=== PATIENT | female | born 1940 | race Caucasian/White ===

== ENCOUNTER 2023-01-03 10:33 | Emergency (ER) | payer MEDICARE, OTHER, SELFPAY ==
[2023-01-03 10:54] VITALS: BP 155/92; PULSE 73; RESP 18; TEMP 36.4; O2SAT 99; BMI 32.9
--- NOTE | 2023-01-03 11:15 | CRLHL7_ITS ---
For Patients: As a result of the Century Cures Act, medical imaging exams and procedure reports are released immediately into your electronic medical record. You may view this report before your referring provider. If you have questions, please contact your health care provider. Indication: Left-sided abdominal and flank pain Technique: Volumetric multidetector CT images of the abdomen and pelvis were obtained after the administration of intravenous contrast. 91 cc Isovue 370 low osmolar intravenous contrast Comparison: None available. Findings: There is basilar atelectasis and parenchymal scar. The liver is normal in attenuation without intrahepatic biliary ductal dilatation. The portal vein is patent. Gallbladder is surgically absent. There is mild dilatation of the common bile duct. There is demonstration of a small embolization coil at the splenic hilum. There is mild thickening of the gastric antrum with demonstration of a small hiatal hernia. There is mild pancreatic atrophy. The adrenal glands are unremarkable. Cystic changes of the kidneys are appreciated with no evidence of obstructive calculus. Moderate stool seen throughout the colon with distal colonic diverticulosis with moderate focal thickening and pericolonic inflammation of the mid sigmoid colon consistent with diverticulitis. The appendix is unremarkable. There is no significant mesenteric, retroperitoneal, or pelvic sidewall lymph nodes. The aorta is nonaneurysmal. There is no significant atherosclerotic disease appreciated. The solid pelvic viscera are grossly unremarkable. There is no free fluid or free air. There is a small fat containing umbilical hernia. The lumbar vertebral body heights are grossly maintained with [id number] multilevel degenerative disc disease. There is no significant spondylolisthesis or displaced fracture. Impression: Moderate focal thickening and pericolonic inflammation of the mid sigmoid colon consistent with diverticulitis. Moderate stool seen throughout the colon. Prior cholecystectomy with reservoir dilatation of the intrahepatic and common bile ducts. Please note that all CT scans at this facility use dose modulation, iterative reconstruction, and/or weight-based dosing when appropriate to reduce radiation dose to as low as reasonably achievable. Dictated by Giovanni Cespedes MD @ 01/03/2023 12:28:00 PM (Electronically Signed)
[2023-01-03 11:32] LABS: Lactate* 0.8 mmol/L (0.5-1.9)
--- NOTE | 2023-01-03 11:41 | ED.GENADULT ---
HPI - General Adult General Date Seen: 01/03/23 Chief complaint: Abdominal Pain Stated complaint: abdominal / back pain Time Seen by Provider: 01/03/23 11:06 Source: patient Mode of arrival: ambulatory Limitations: no limitations History of Present Illness HPI narrative: Patient is an 82-year-old woman who tells me she has a history of both kidney stones and diverticulitis, she says she has had some left-sided abdominal and flank pain on and off for the past week which was mild and just a nuisance, but woke up at 3:45 a.m. in the morning with which she says was severe pain radiating from the left flank wrapping around the left side of her abdomen to who the umbilicus. She says it also involved her bladder. It seems to be milder now although she says it is still severe. She has not had any nausea, vomiting, black or bloody stools. Has says a couple of episodes of diarrhea over the past week. No urinary symptoms. She does not know whether this feels like previous episodes of kidney stones or diverticulitis. She presented to urgent care where she had a CBC which was normal and a UA which was normal and was sent here for further evaluation. She notes previous cholecystectomy, hysterectomy, multiple orthopedic surgeries. No diverticular surgery. She does not smoke. No other significant medical history. Related Data Home Medications Medication Instructions Recorded Confirmed propranolol 10 mg tablet 10 mg PO DAILY 01/03/23 01/03/23 Previous Rx's Medication Instructions Recorded oxycodone 5 mg tablet 2.5 - 5 mg (0.5 - 1 x 5 mg) PO TID 01/03/23 PRN pain #7 tabs Allergies Allergy/AdvReac Type Severity Reaction Status Date / Time aspirin [From Norgesic] Allergy Verified 01/03/23 09:12 caffeine [From Norgesic] Allergy Verified 01/03/23 09:12 ciprofloxacin [From Cipro] Allergy Verified 01/03/23 09:12 orphenadrine [From Norgesic] Allergy Verified 01/03/23 09:12 unknown Allergy Uncoded 01/03/23 09:16 Review of Systems Status of ROS: Reports: 10 or more systems reviewed and unremarkable except as noted in History and below Exam Narrative: Exam Narrative: Vital signs as noted above. In general, an alert, well-appearing patient. Head: Normocephalic, atraumatic. Eyes: Pupils are equal reactive. Extraocular movements are full. Conjunctivae are normal. ENT: Mucous membranes are moist. Throat is normal. Neck: Supple without lymphadenopathy. Heart: Regular rate and rhythm. No murmur or rub. Lungs: Clear bilaterally. No increased work of breathing, crackles or wheezes. Abdomen: Soft and nondistended, diffuse left-sided tenderness without rebound guarding or rigidity. Extremities: Well perfused. No edema. No calf tenderness. Pulses intact. Neurologic: Patient is alert and oriented to person and place. Speech is fluent. Face is symmetric. Moves all extremities equally. Affect: Normal. Skin: Warm and dry. Well perfused. Const: Vital Signs, click to edit/add: Vital Signs - 24 hr 01/03/23 10:54 Temperature 97.6 F Pulse Rate [Right Pulse Oximeter] 73 Respiratory Rate 18 Blood Pressure [Ri ght Upper Arm] 155/92 H Pulse Oximetry 99 Oxygen Delivery Me thod Room Air Documenting provider has reviewed patient's vital signs: yes Course Course ED Course: Will place an IV, check other labs including metabolic panel, lipase, LFTs, lactate, CRP. Reviewed labs from Urgent Care. CT scan ordered. Diagnostic considerations include colitis, diverticulitis, pyelonephritis, less likely obstruction, aortic pathology, unclear whether she still has ovaries. Vital signs are stable, she appears comfortable. Labs are reassuring. Her CBC from Urgent Care was unremarkable, metabolic panel is normal, lactate is 0.8. LFTs are normal. CRP is minimally elevated at 3.3 and lipase is normal at 78. Her CT scan is read by Radiology as follows:Impression: Moderate focal thickening and pericolonic inflammation of the mid sigmoid colon consistent with diverticulitis. Moderate stool seen throughout the colon. Prior cholecystectomy with reservoir dilatation of the intrahepatic and common bile ducts. Consistent with mild diverticulitis, no evidence of perforation or abscess. I think it is reasonable to treat her at home with oral antibiotics. She declined anything stronger for pain than Tylenol, it initially prescribed some oxycodone but she declined that. Reviewed with her that if she has worsening, develops fevers, severe pain, vomiting etcetera she should come back. Otherwise, primary care follow-up for recheck next week. Vital Signs Vital signs: Initial Vital Signs Temperature 97.6 F 01/03/23 10:54 Temperature Source Temporal Artery Scan 01/03/23 10:54 Pulse Rate 73 01/03/23 10:54 Respiratory Rate 18 01/03/23 10:54 Blood Pressure 155/92 H 01/03/23 10:54 Blood Pressure Mean 113 H 01/03/23 10:54 Blood Pressure Position Sitting 01/03/23 10:54 Pulse Oximetry 99 01/03/23 10:54 Oxygen Delivery Method Room Air 01/03/23 10:54 Vital Signs Temperature 97.6 F 01/03/23 10:54 Pulse Rate 73 01/03/23 10:54 Respiratory Rate 18 01/03/23 10:54 Blood Pressure 155/92 H 01/03/23 10:54 Pulse Oximetry 99 01/03/23 10:54 Oxygen Delivery Method Room Air 01/03/23 10:54 Temperature 97.6 F 01/03/23 10:54 Pulse Rate 73 01/03/23 10:54 Respiratory Rate 18 01/03/23 10:54 Blood Pressure 155/92 H 01/03/23 10:54 Pulse Oximetry 99 01/03/23 10:54 Oxygen Delivery Method Room Air 01/03/23 10:54 Medical Decision Making Lab Data Labs: Lab Results 01/03/23 Range/Units 11:28 Sodium 137 (135-149) mmol/L Potassium 4.0 (3.6-5.1) mmol/L Chloride 105 (96-114) mmol/L Carbon Dioxide 25 (20-32) mmol/L Anion Gap 7 (7-15) mEq/L BUN 18 (7-30) mg/dL Creatinine 0.9 (0.5-1.5) mg/dL Estimated Creat Clear 36.50 Estimated GFR 64 ml/min Glucose 95 (60-115) mg/dL Lactate 0.8 (0.5-1.9) mmol/L Calcium 9.3 (8.4-10.6) mg/dL Total Bilirubin 0.9 (0.1-1.5) mg/dL Direct Bilirubin 0.0 (0.0-0.5) mg/dL AST 26 (12-35) U/L ALT 18 (4-35) U/L Alkaline Phosphatase 91 (40-150) U/L C-Reactive Protein 3.3 H (0.5-1.0) mg/dL Total Protein 7.6 (6.0-8.3) g/dL Albumin 4.2 (3.3-5.0) g/dL Lipase 78 (23-300) U/L Discharge Plan Discharge Clinical Impression: Diverticulitis Patient Disposition: Home, Self-Care Condition: Stable Instructions: Diverticulitis (DC) Additional Instructions: Antibiotic as prescribed. Tylenol 1000 mg 3 times daily. Oxycodone 1/2-1 full tablet if needed for more severe pain. Primary care follow-up next week for recheck. Return at any time for worsening pain, fevers, bloody stools, vomiting or other worsening symptoms. Prescriptions: New oxycodone 5 mg tablet 2.5 - 5 mg PO TID PRN (Reason: pain) Qty: 7 0RF No Action propranolol 10 mg tablet 10 mg PO DAILY Follow Up/Referrals: Anel San DO [Primary Care Provider] - Stand Alone Forms: [email or web address] Info Instructions
[2023-01-03 11:47] LABS: Albumin* 4.2 g/dL (3.3-5.0); Chloride* 105 mmol/L (96-114)
[2023-01-03 11:48] LABS: Sodium* 137 mmol/L (135-149)
[2023-01-03 11:50] LABS: Bilirubin Total* 0.9 mg/dL (0.1-1.5); Carbon Dioxide* 25 mmol/L (20-32); Creatinine* 0.9 mg/dL (0.5-1.5); Estimated Glomerular Filt Rate 64 ml/min
[2023-01-03 11:51] LABS: Alanine Aminotransferase* 18 U/L (4-35); Alkaline Phosphatase* 91 U/L (40-150); Anion Gap 7 mEq/L (7-15); Aspartate Amino Transferase* 26 U/L (12-35); Blood Urea Nitrogen* 18 mg/dL (7-30); Calcium* 9.3 mg/dL (8.4-10.6); Glucose* 95 mg/dL (60-115); Lipase* 78 U/L (23-300); Total Protein* 7.6 g/dL (6.0-8.3)
[2023-01-03 11:53] LABS: C Reactive Protein* 3.3 mg/dL (0.5-1.0)
== END 2023-01-03 13:31 | disposition home or self-care (01) ==
PROVIDERS: Emergency Provider Emergency Medicine; PCP Family Medicine
DX: K57.92 Diverticulitis of intestine, part unspecified, without perforation or abscess without bleeding (principal)
CPT/HCPCS: 36415; 74177; 80048; 80076; 83605; 83690; 86140; 87086; 99284; Q9967

== ENCOUNTER 2024-06-12 16:48 | Emergency (ER) | payer MEDICARE, SELFPAY ==
--- OUTSIDE RECORDS SUMMARY | 2024-06-12 16:50 | XMS_ITS | Clinical Summary ---
Author Organization [employer] [facility] Address [place], [place] [address] Care Team Providers Care Health Care Analyst Name Role Phone Anel San DO Primary Care Provider [phone] Allergies Active Allergy Reactions Criticality Noted Date Comments Caffeine Tachycardia High 09/24/2022 Lactase Diarrhea High 09/24/2022 Fwohoybbrnca-Rez-Ahnlfpar 11/05/2006 Oxycodone Other - Describe In Comment Field High 09/24/2022 Oxycodone-Acetaminophen Other - Describe In Comment Field High 09/24/2022 Sulfa (Sulfonamide Antibiotics) 11/05/2006 Medications ketotifen (Zaditor) 0.025 % (0.035 %) ophthalmic solutionIndication s:Allergic conjunctivitis of both eyes Place 1 Drop into both eyes two times daily. 5 mL 4 Active propranoloL (INDERAL) 10 mg tabletIndications: Migraine with aura and without status migrainosus, not intractable Take 1 Tablet (10 mg) by mouth once daily. 90 Tablet 3 5 Active propranoloL (INDERAL) 10 mg tabletIndications: Migraine with aura and without status migrainosus, not intractable TAKE ONE TABLET BY MOUTH ONE TIME DAILY 60 Tablet 4 05/27/19 25 Discontinu ed(Reorder (E-cancel not sent)) Active Problems Problem Noted Date Diagnosed Date Migraine without status migrainosus, not intract able 09/25/2022 SLE (systemic lupus erythematosus) 09/25/2022 Stage 3a chronic kidney disease 09/25/2022 Paroxysmal SVT (supraventricular tachycardia) Chronic pain of left ankle 09/25/2022 Encounters Date Type Department Care Team Description 06/06/2024 11:00 AM CAR SEAT UPHOLSTERER Ancillary Procedure [facility] [address] [place] [address] 06/06/2024 Travel 05/30/2024 10:35 AM CAR SEAT UPHOLSTERER Office Visit [facility] [address] [place] [address] Anel San Odalis, DO Medicare ANNUAL (subsequent) Visit (84 year old female); Neurologic Problem (Bilateral foot numbness - constant) 05/30/2024 Travel 05/19/2024 Telephone [facility] [address] [place] [address] Anel San Odalis, DO Questions (Lab work wanted) 05/11/2024 Orders Only [facility] Scanner 1 scan: (1-Ord) [facility], 05/11/2024 04/20/2024 Refill [facility] [address] [place] [address] Anel San, DO Refill Request (Propranolol) from Last 3 Months Immunizations Name Administration Dates Next Due COVID-19 vaccine (Moderna 10 0mcg/0.5mL) DAINA VENEGAS 03/27/2021,08/05/2020,07/09/2020 Pneumococcal Poly,23-Valent (Pneumovax) 04/27/19 19 Pneumococcal conj 13-Valent (Prevnar 13) 018 Family History Medical History Relation Name Comments Alcoholism Brother Throat cancer Brother Smoking histor y Other Father emphysema Dementia Mother Vascular fransisca ia Hypertension Mother Stroke Mother Cancer-breast No Family History Relation Name Status Comments Brother Father (Age 92) Mother (Age 89) Social History Tobacco Use Types Packs/Day Years Used Date Smoking Tobacco: Never Smokeless Tobacco: Never Tobacco Cessation:Counseling Given: Yes Alcohol Use Standard Drinks/Week Comments Not Currently 0 (1 standard drink = 0.6 oz pur e alcohol) PHQ-2 Answer Date Recorded PHQ-2 TOTAL SCORE 0 05/30/2024 Social Connections Answer Date Recorded Do you often feel lonely or isolated from those around you? 0 05/30/2024 Financial Resource Strain Answer Date R ecorded Difficulty of Paying Living Expenses 3 05/30/2024 Difficulty of Paying Living Expenses Not on file 05/30/2024 Food Insecurity Answer Date Recorded Do you worry your food will run out before you are able to buy more? 1 05/30/2024 Transportation Needs Answer Date Record ed Does lack of transportation keep you from medica l appointments? 1 05/30/2024 Does lack of transportation keep you from work, meetings or getting things that you need? 1 05/30/2024 Housing Stability Answer Date Recorded What is your housing situation today? 1 05/30/2024 Utilities Answer Date Recorded Do you have trouble paying f or utilities (for example, heat, electricity, water, phone)? 1 05/30/2024 Comments No Sex and Gender Information Value Date Recorded Sex Assigned at Not on file Legal Sex Female 6:21 AM CAR SEAT UPHOLSTERER Gender Identity Not on file Sexual Orientation Not on file Occupation Industry Job Start Date Job End Date Retired Not on file Not on file Not on file Obstetrics History Last Filed Vital Signs Vital Sign Reading Time Taken Comments Blood Pressure 130/86 05/30/2024 10:39 AM CAR SEAT UPHOLSTERER Pulse 77 05/30/2024 10:39 AM CAR SEAT UPHOLSTERER Temperature 36.4 C (97.6 F) 10/09/2022 9:21 AM CDT Respiratory Rate - - Oxygen Saturation 96% 05/30/2024 10:39 AM CAR SEAT UPHOLSTERER Inhaled Oxygen Concentration - - Weight 86.5 kg (190 lb 9.6 oz) 05/30/2024 10:39 AM CAR SEAT UPHOLSTERER Height 159.9 cm (5' 2.95) 05/30/2024 10:[address] Body Mass Index 33.81 05/30/2024 10:39 AM CAR SEAT UPHOLSTERER Plan of Treatment Health Maintenance Due Date Last Done Comments Tdap 02/29/1952 Tetanus booster 1961 Zoster (shingles) series for age 50+ (1 of 2) 1991 RSV vaccine for adults or (1 - 1-dose 75+ series) 02/29/2016 COVID-19 vaccine series ( season) 2023 03/27/2021, 08/05/2020, 07/09/2020 Influenza for age 65+ 12/27/2023 BMI (ht and wt on same day) for age 18+ 05/30/2025 05/30/2024, 12/03/2022 Depression screening for age 12+ 05/30/2025 05/30/2024, 12/04/2022, 12/04/2022, Additional history exists Medicare Wellness for age 65+ 05/31/2025 05/30/2024, 12/03/2022 Pneumococcal series for age 50+ Completed 9, 08/10/2017 DEXA/DXA scan for age 65+ Completed 06/06/2024 Procedures Procedure Name Priority Date/Time Associated Diagnosis Comments XR DXA BONE DENSITY 2 SITES AXIAL AND 1 SITE PERIPHERAL Routine 06/06/2024 11:25 AM CAR SEAT UPHOLSTERER Postmenopausal Asymptomatic postmenopausal state LIPID PANEL W REFLEX MEASURED LDL Routine 05/30/2024 11:14 AM CAR SEAT UPHOLSTERER Lipid screening BASIC METABOLIC PANEL Routine 05/30/2024 11:14 AM CAR SEAT UPHOLSTERER Stage 3a chronic kidney disease (HC) VITAMIN B12 Routine 05/30/2024 11:14 AM CAR SEAT UPHOLSTERER Numbness of foot TSH WITH REFLEX Routine 05/30/2024 11:14 AM CAR SEAT UPHOLSTERER Numbness of foot Pruritus CBC WITH AUTO DIFFERENTIAL Routine 05/30/2024 11:14 AM CAR SEAT UPHOLSTERER Pruritus SCAN-OPERATIVE/PROCE DURE REPORT 05/11/2024 12:00 AM CAR SEAT UPHOLSTERER from Last 3 Months Results * (ABNORMAL) XR DXA BONE DENSITY 2 SITES AXIAL AND 1 SITE PERIPHERAL (06/06/2024 11:25 AM CAR SEAT UPHOLSTERER) Anatomical Region Laterality Modality LUMBAR SPINE Other Impressions 06/07/2024 1:12 PM CAR SEAT UPHOLSTERER Osteopenia. RECOMMENDATIONS: The National Osteoporosis Foundation recommends pharmacologic treatment for patients with T-scores of -2.5 or less, patients with prior history of fragility fractures, or patients with 10-year probability of greater than 3% at hips or greater than 20% of suffering major osteoporotic fractures. Recommend continued optimization of calcium and vitamin D intake through dietary means and/or supplementation and regular exercise. Repeat scan recommended in 3-5 years. Yanira Rand PA-C [facility] 06/07/2024 Narrative 06/07/2024 1:12 PM CAR SEAT UPHOLSTERER For Patients: Results are automatically released to your [facility] ([employer]) account once available, in compliance with federal regulations. This means that you may see your results before your provider has had a chance to review them. Please allow 2-3 business days for your provider to comment on the results. XR DXA Bone Mineral Density (BMD) EXAM LOCATION: [address] [address] PATIENT NAME: Alivia Bhardwaj DATE OF : 1940 EXAM DATE: 06/06/2024 REQUESTING PROVIDER: Anel San DO GENDER AT : female HEIGHT: 5' 2.95 (05/30/2024) WEIGHT: 190 lb 9.6 oz (05/30/2024) MENOPAUSAL STATUS: Postmenopausal RACE/ETHNICITY: White RISK FACTORS: Family History of Hip Fracture (parental), Renal Failure, and White Race CURRENT MEDICATION FOR BONE LOSS: NONE INDICATION: Post-Menopause COMPARISON DATE(S): None DXA scans are compared to prior studies for a patient only when the two (or more) studies were performed on the same scanner. It is not possible to compare data generated on one scanner to data from another because there are not standards in DXA equipment. This applies even if the two scanners are made by the same tar pot man. PROCEDURE: Dual-energy x-ray absorptiometry performed with routine technique. Reporting is completed in the form of a T-score. The T-score represents the standard deviation from peak bone mass based on young healthy adult. A Z-score is used for diagnosis in premenopausal women, and for men under the age of 50. FINDINGS: RESULT LUMBAR SPINE L2 - L4 BMD: 1.618 g/cm2 T-Score: + 3.2 Z-Score: + 4.4 Change from prior: None RESULTS FEMUR Left femoral neck BMD: 0.970 g/cm2 T-Score: - 0.5 Z-Score: + 1.3 Change from prior: None Left hip BMD: 0.907 g/cm2 T-Score: - 0.8 Z-Score: + 0.9 Change from prior: None RESULT FOREARM Left Forearm distal radius BMD: 0.684 g/cm2 T-Score: - 2.2 Z-Score: + 0.8 Change from prior: None WHO criteria: Normal: T-score at or above -1 SD Osteopenia: T-score between -1.1 and -2.4 SD Osteoporosis: T-score at or below -2.5 SD FRAX RISK CALCULATION (USED FOR OSTEOPENIA ONLY): 10-year probability of major osteoporotic fracture: 9.2%. 10-year probability of hip fracture: 1.6%. Anel Odalis Mena DO DEXA Final Result * TSH WITH REFLEX (05/30/2024 11:14 AM CAR SEAT UPHOLSTERER) TSH W/REFLEX TO FT4 2.04 0.40 - 4.50 mIU/L [facility] Blood BLOOD SPECIMEN / Unknown 05/30/2024 11:14 AM CAR SEAT UPHOLSTERER 05/30/2024 11:14 AM CAR SEAT UPHOLSTERER [facility] Odalis Mena CHEMISTRY Final Result [facility] [address] [place] [address], [facility] [address] [place] [address] * LIPID PANEL W REFLEX MEASURED LDL (05/30/2024 11:14 AM CAR SEAT UPHOLSTERER) CHOLESTEROL, TOTAL 191 <200 mg/dL [facility] HDL CHOLESTEROL 87 > OR = 50 mg/dL [facility] TRIGLYCERIDES 125 <150 mg/dL [facility] LDL-CHOLESTEROL 81 mg/dL (calc) [facility] Comment: Reference range: <100 Desirable range <100 mg/dL for primary prevention; <70 mg/dL for patients with CHD or diabetic patients with > or = 2 CHD risk factors. LDL-C is now calculated using the Sruthi calculation, which is a validated novel method providing better accuracy than the Friedewald equation in the estimation of LDL-C. Shekhar ROSEN et al. CECILIA. 2013;310(19): 1628-5163 (http://education.Scalix/faq/PIS621) CHOL/HDLC RATIO 2.2 <5.0 (calc) [facility] NON HDL CHOLESTEROL 104 <130 mg/dL (calc) [facility] Comment: For patients with diabetes plus 1 major ASCVD risk factor, treating to a non-HDL-C goal of <100 mg/dL (LDL-C of <70 mg/dL) is considered a therapeutic option. Blood BLOOD SPECIMEN / Unknown 05/30/2024 11:14 AM CAR SEAT UPHOLSTERER 05/30/2024 11:14 AM CAR SEAT UPHOLSTERER Anel Odalis San DO CHEMISTRY Final Result [employer] [facility] [address] [place] [address], [facility] [address] [place] [phone] * CBC AND DIFFERENTIAL (05/30/2024 11:14 AM CAR SEAT UPHOLSTERER) Pathologist [facility] WHITE BLOOD CELL COUNT 7.1 3.8 - 10.8 Thousand/u L [facility] RED BLOOD CELL COUNT 4.40 3.80 - 5.10 Million/uL [facility] HEMOGLOBIN 13.2 11.7 - 15.5 g/dL [facility] HEMATOCRIT 39.4 35.0 - 45.0 % [facility] MCV 89.5 80.0 - 100.0 fL [facility] MCH 30.0 27.0 - 33.0 pg [facility] MCHC 33.5 32.0 - 36.0 g/dL [facility] Comment: For adults, a slight decrease in the calculated MCHC value (in the range of 30 to 32 g/dL) is most likely not clinically significant; however, it should be interpreted with caution in correlation with other red cell parameters and the patient's clinical condition. RDW 12.9 11.0 - 15.0 % [facility] PLATELET COUNT 325 140 - 400 Thousand/u L [facility] MPV 10.6 7.5 - 12.5 fL [facility] ABSOLUTE NEUTROPHILS 4,927 1,500 - 7,800 cells/uL [facility] ABSOLUTE LYMPHOCYTES 1,505 850 - 3,900 cells/uL [facility] ABSOLUTE MONOCYTES 469 200 - 950 cells/uL [facility] ABSOLUTE EOSINOPHILS 170 15 - 500 cells/uL [facility] ABSOLUTE BASOPHILS 28 0 - 200 cells/uL [facility] NEUTROPHILS 69.4 % [facility] LYMPHOCYTES 21.2 % [facility] MONOCYTES 6.6 % [facility] EOSINOPHILS 2.4 % [facility] BASOPHILS 0.4 % [facility] Blood BLOOD SPECIMEN / Unknown 05/30/2024 11:14 AM CAR SEAT UPHOLSTERER 05/30/2024 11:14 AM CAR SEAT UPHOLSTERER [employer] Mena DO HEMATOLOGY Final Result Performing Organization Address City/State/[facility] Co de Phone Number [facility] [address] [place] [address], [facility] [address] [place] [address] * VITAMIN B12 (05/30/2024 11:14 AM CAR SEAT UPHOLSTERER) VITAMIN B12 752 200 - 1,100 pg/mL [facility] Blood BLOOD SPECIMEN / Unknown 05/30/2024 11:14 AM CAR SEAT UPHOLSTERER 05/30/2024 11:14 AM CAR SEAT UPHOLSTERER Anel Odalis Cashuallyqra DO CHEMISTRY Final Result [employer] [facility] [address] [place] [address], [place] [phone] [facility] [address] [place] [address] * (ABNORMAL) BASIC METABOLIC PANEL (05/30/2024 11:14 AM CAR SEAT UPHOLSTERER) GLUCOSE 96 65 - 99 mg/dL [facility] Comment: Fasting reference interval UREA NITROGEN (BUN) 19 7 - 25 mg/dL [facility] CREATININE 1.22(H) 0.60 - 0.95 mg/dL [facility] EGFR 44(L) > OR = 60 mL/min/1.7 3m2 [facility] BUN/CREATININE RATIO 16 6 - 22 (calc) [facility] SODIUM 142 135 - 146 mmol/L [facility] POTASSIUM 4.7 3.5 - 5.3 mmol/L [facility] CHLORIDE 105 98 - 110 mmol/L [facility] CARBON DIOXIDE 24 20 - 32 mmol/L [facility] ELECTROLYTE BALANCE 13 7 - 17 mmol/L (calc) [facility] CALCIUM 9.5 8.6 - 10.4 mg/dL [facility] Blood BLOOD SPECIMEN / Unknown 05/30/2024 11:14 AM CAR SEAT UPHOLSTERER 05/30/2024 11:14 AM CAR SEAT UPHOLSTERER us Anel San DO CHEMISTRY Final Result [employer] [facility] [address] [place] [address], [place] [phone] [facility] [address] [place] [address] * SCAN-OPERATIVE/PROCEDURE REPORT (05/11/2024 12:00 AM CAR SEAT UPHOLSTERER) us Scanner OTHER Final Result from Last 3 Months Insurance MEDICARE PART B HB ONLY [facility] MR/MSHO Care Teams Health Care Analyst Relationship Specialty Start Date End Date Anel [place] [address] [address] PCP - General Family Practice 09/25/22
[2024-06-12 17:05] VITALS: BP 131/81; PULSE 77; RESP 18; TEMP 36.4; O2SAT 99; BMI 33.5
--- NOTE | 2024-06-12 17:10 | CRLHL7_ITS ---
For Patients: As a result of the Century Cures Act, medical imaging exams and procedure reports are released immediately into your electronic medical record. You may view this report before your referring provider. If you have questions, please contact your health care provider. INDICATION: Left lower quadrant pain. TECHNIQUE: Axial intravenously infused CT cuts were performed from above diaphragm to the below the ischial tuberosities with infusion of 93 mL of Isovue-370. COMPARISON: 01/03/2023. FINDINGS: There is moderate colonic diverticulosis. There is no definite pericolonic inflammation to suggest acute diverticulitis although the pelvis is somewhat obscured by streak artifact from right hip arthroplasty. The small bowel appears normal. The appendix cannot be identified with certainty. There are no pericecal inflammatory changes. There is no free intraperitoneal air or fluid. 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 These were present previously. There is likely been a fundoplication at the GE junction. The liver, spleen, pancreas and adrenal glands appear normal. There is a 5.5 cm cyst at the upper pole of the left kidney. The right kidney appears normal. There are no enlarged retroperitoneal, mesenteric, iliac or inguinal lymph nodes. There has been a hysterectomy. The urinary bladder appears normal. There are no nodules or masses at the lung bases. There are no osteolytic or sclerotic skeletal lesions. IMPRESSION: 1. Moderate colonic diverticulosis without definite evidence of acute diverticulitis although a portion of the pelvis is obscured by streak artifact from a right hip arthroplasty. 2. Status post cholecystectomy and hysterectomy. There has also likely been a fundoplication of the gastroesophageal junction. There may have been a splenic artery aneurysm embolization procedure. Please note that all CT scans at this facility use dose modulation, iterative reconstruction, and/or weight-based dosing when appropriate to reduce radiation dose to as low as reasonably achievable. Dictated by Bj Harrison MD @ 06/12/2024 7:02:14 PM (Electronically Signed)
--- NOTE | 2024-06-12 17:32 | ED.GENADULT ---
HPI - General Adult General Date Seen: 06/12/24 Chief complaint: Abdominal Pain Stated complaint: diverticulitis Time Seen by Provider: 06/12/24 16:59 History of Present Illness HPI narrative: Patient is an 84-year-old with a history of kidney stones as well as diverticulitis who presents for evaluation of left lower quadrant pain which has been present since this morning. Seen previously with similar symptoms and as then she is not able to differentiate whether this might be diverticulitis or kidney stone. No fever, she has felt chilled. No vomiting, no black or bloody stools. No urinary symptoms per Related Data Home Medications ?Medication ?Instructions ?Recorded ?Confirmed propranolol 10 mg tablet 10 mg PO DAILY 01/03/23 01/03/23 Previous Rx's ?Medication ?Instructions ?Recorded albuterol sulfate 90 mcg/actuation 2 puff inhalation Q4H PRN 02/03/24 aerosol inhaler shortness of breath or wheezing #1 ea Allergies Allergy/AdvReac Type Severity Reaction Status Date / Time acetaminophen (From Percocet) Allergy Verified 02/03/24 11:37 aspirin (From Norgesic) Allergy Verified 01/03/23 09:12 caffeine (From Norgesic) Allergy Verified 01/03/23 09:12 ciprofloxacin (From Cipro) Allergy Verified 01/03/23 09:12 orphenadrine (From Norgesic) Allergy Verified 01/03/23 09:12 oxycodone (From Percocet) Allergy Verified 02/03/24 11:37 Sulfa (Sulfonamide Allergy Verified 02/03/24 11:37 Antibiotics) unknown Allergy Uncoded 01/03/23 09:16 Review of Systems Status of ROS: Reports: 6 or more systems reviewed and unremarkable except as noted in History and below [facility] Social History Non-prescribed substance use: denies use Exam Narrative: Exam Narrative: Vital signs reviewed In general, alert, nontoxic elderly woman. Head: Normocephalic, atraumatic. Eyes: Sclera clear. Pupils equal and reactive. ENT: Mucous membranes moist. Neck: Supple without adenopathy. Heart: Regular rate and rhythm without murmur. Lungs: Clear. No increased work of breathing, crackles or wheezes. Abdomen: Soft, nondistended. Left sided abdominal tenderness in the mid and lower abdomen without rebound guarding or rigidity. Extremities: Well perfused, pulses intact. No significant edema. Neurologic: Alert, conversant. Speech fluent, face symmetric. Moves all extremities equally. Skin: Warm, dry well perfused. Affect: Normal. Const: Vital Signs, click to edit/add: Vital Signs - 24 hr 06/12/24 17:05 Temperature 97.6 F Pulse Rate [Pulse Oximeter] 77 Respiratory Rate 18 Blood Pressure [Ri ght Upper Arm] 131/81 Pulse Oximetry 99 Oxygen Delivery Me thod Room Air Course Course ED Course: Patient declines need for anything for pain at this time. Will obtain a CT scan as well as labs to evaluate for possible diverticulitis, colitis, kidney stone, less likely obstruction, appendicitis, ovarian pathology, UTI or pyelonephritis. Labs are notable for a normal white blood cell count, normal metabolic panel, negative UA. CT scan by my review did not show evidence of inflammatory changes suggestive of diverticulitis. Read by Radiology as showing colonic diverticulosis without definite evidence of diverticulitis although a portion of the pelvis was obscured by streak artifact. Discussed results with her. I think the possibilities are that pain is unrelated to diverticulitis or that she has early diverticulitis not yet visible on imaging. She would prefer to treat for possible early diverticulitis as she worries when the pain persists all day that it might get worse. Reviewed reasons to return such as worsening or severe pain, fever, bloody stools etcetera. Augmentin prescribed from [facility]. Tylenol as needed for pain. See primary care if not improving over the next week. Vital Signs Vital signs: Initial Vital Signs Temperature 97.6 F 06/12/24 17:05 Temperature Source Temporal Artery Scan 06/12/24 17:05 Pulse Rate 77 06/12/24 17:05 Respiratory Rate 18 06/12/24 17:05 Blood Pressure 131/81 06/12/24 17:05 Blood Pressure Mean 97 06/12/24 17:05 Blood Pressure Position Sitting 06/12/24 17:05 Pulse Oximetry 99 06/12/24 17:05 Oxygen Delivery Method Room Air 06/12/24 17:05 Vital Signs Temperature 97.6 F 06/12/24 17:05 Pulse Rate 77 06/12/24 17:05 Respiratory Rate 18 06/12/24 17:05 Blood Pressure 131/81 06/12/24 17:05 Pulse Oximetry 99 06/12/24 17:05 Oxygen Delivery Method Room Air 06/12/24 17:05 Temperature 97.6 F 06/12/24 17:05 Pulse Rate 77 06/12/24 17:05 Respiratory Rate 18 06/12/24 17:05 Blood Pressure 131/81 06/12/24 17:05 Pulse Oximetry 99 06/12/24 17:05 Oxygen Delivery Method Room Air 06/12/24 17:05 Medical Decision Making Lab Data Lab results reviewed: Yes I reviewed the patient's lab results Labs: Lab Results 06/12/24 06/12/24 06/12/24 Range/Units 17:18 17:25 17:51 WBC 9.62 (4.50-11.00) K/uL RBC 4.20 (4.00-5.20) m/uL Hgb 12.3 (12.0-16.0) gm/dL Hct 38.2 (33.0-51.0) % MCV 91 (80-100) fL MCH 29 (26-34) pg MCHC 32 (32-36) gm/dL RDW Coeff of [place] 13.3 (11.5-15.5) % Plt Count 237 (140-440) K/uL Neut % (Auto) 73.6 H (42.0-72.0) % Lymph % (Auto) 18.0 L (20-44) % Banner % (Auto) 5.6 (0.0-11.0) % Eos % (Auto) 2.3 (0.0-7.0) % Baso % (Auto) 0.2 (0.0-3.0) % Neut # (Auto) 7.10 H (1.7-7.0) K/uL Lymph # (Auto) 1.70 (0.90-2.90) K/uL Banner # (Auto) 0.50 (0.00-0.90) K/UL Eos # (Auto) 0.22 (0.00-0.50) K/uL Baso # (Auto) 0.02 (0.00-0.30) K/uL Abs Immat Gran (auto) 0.03 (0.00-0.30) K/uL Imm/Tot Granulo (auto) 0.3 % Sodium 137 (135-149) mmol/L Potassium 4.3 (3.6-5.1) mmol/L Chloride 105 (96-114) mmol/L Carbon Dioxide 23 (20-32) mmol/L Anion Gap 9 (7-15) mEq/L BUN 20 (7-30) mg/dL Creatinine 1.0 (0.5-1.5) mg/dL Estimated Creat Clear 35.26 Estimated GFR 56 ml/min Glucose 90 (60-115) mg/dL Calcium 8.8 (8.4-10.6) mg/dL Urine Color Yellow (Yellow) Urine Appearance Clear (Clear) Urine pH 5.5 (5.0-8.5) Ur Specific [place] 1.015 (1.000-1.030) Urine Protein Negative (Negative) Urine Glucose (UA) Negative (Negative) Urine Ketones Negative (Negative) Urine Blood Trace-intact A (Negative) Urine Nitrite Negative (Negative) Urine Bilirubin Negative (Negative) Urine Urobilinogen 0.2 (0.2-1.0) Ur Leukocyte Esterase Negative (Negative) Urine RBC 0-2 (0-2) Urine WBC 0-2 (0-5) Ur Squamous Epith Cells Few (None-Few) Urine Bacteria None (None) POC Creatinine 1.2 (0.6-1.3) mg/dl Imaging Data CT scan - abdomen: Attestation: I have reviewed the pertinent imaging results. Radiologist's impression: Patient: BERONICA BOBO Facility: [facility] . Site : 1940 Study: CT-Abdomen/Pelvis W/IV-06/12/2024 6:17:37 PM Ordering Physician: Shruthi Kwon Final Report: INDICATION: Left lower quadrant pain. TECHNIQUE: Axial intravenously infused CT cuts were performed from above diaphragm to the below the ischial tuberosities with infusion of 93 mL of Isovue-370. COMPARISON: 01/03/2023. FINDINGS: There is moderate colonic diverticulosis. There is no definite pericolonic inflammation to suggest acute diverticulitis although the pelvis is somewhat obscured by streak artifact from right hip arthroplasty. The small bowel appears normal. The appendix cannot be identified with certainty. There are no pericecal inflammatory changes. There is no free intraperitoneal air or fluid. 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 These were present previously. There is likely been a fundoplication at the GE junction. The liver, spleen, pancreas and adrenal glands appear normal. There is a 5.5 cm cyst at the upper pole of the left kidney. The right kidney appears normal. There are no enlarged retroperitoneal, mesenteric, iliac or inguinal lymph nodes. There has been a hysterectomy. The urinary bladder appears normal. There are no nodules or masses at the lung bases. There are no osteolytic or sclerotic skeletal lesions. IMPRESSION: 1. Moderate colonic diverticulosis without definite evidence of acute diverticulitis although a portion of the pelvis is obscured by streak artifact from a right hip arthroplasty. 2. Status post cholecystectomy and hysterectomy. There has also likely been a fundoplication of the gastroesophageal junction. There may have been a splenic artery aneurysm embolization procedure. Please note that all CT scans at this facility use dose modulation, iterative reconstruction, and/or weight-based dosing when appropriate to reduce radiation dose to as low as reasonably achievable. Dictated by Bj Harrison MD @ 06/12/2024 7:02:14 PM Discharge Plan Discharge Clinical Impression: Diverticulitis Patient Disposition: Home, Self-Care Condition: Stable Instructions: Diverticulitis (DC) Additional Instructions: Take Augmentin as prescribed. Return for worsening or severe pain, fevers, bloody stools or other new symptoms. See primary care if not improving over the next week. Tylenol if needed for pain. Prescriptions: No Action propranolol 10 mg tablet 10 mg PO DAILY albuterol sulfate 90 mcg/actuation HFA aerosol inhaler 2 puff inhalation Q4H PRN (Reason: shortness of breath or wheezing) Qty: 1 0RF Follow Up/Referrals: Anel San DO [Primary Care Provider] - Stand Alone Forms: [employer] Info Instructions
[2024-06-12 17:37] LABS: Basophils Absolute Auto 0.02 K/uL (0.00-0.30); Basophils Percent Auto 0.2 % (0.0-3.0); Eosinophils Absolute Auto 0.22 K/uL (0.00-0.50); Eosinophils Percent Auto 2.3 % (0.0-7.0); Hematocrit 38.2 % (33.0-51.0); Hemoglobin* 12.3 gm/dL (12.0-16.0); Immature Granulocytes Abs Auto 0.03 K/uL (0.00-0.30); Immature Granulocytes Pct Auto 0.3 %; Mean Corpuscular HGB Conc 32 gm/dL (32-36); Mean Corpuscular Hemoglobin 29 pg (26-34); Mean Corpuscular Volume 91 fL (80-100); Monocytes Percent Auto 5.6 % (0.0-11.0); Neutrophils Percent Auto 73.6 % (42.0-72.0); Platelet Count* 237 K/uL (140-440); RDW Coefficient of Variation % 13.3 % (11.5-15.5); White Blood Count* 9.62 K/uL (4.50-11.00)
[2024-06-12 17:41] LABS: Slide Review Reflex No
[2024-06-12 17:49] LABS: Creatinine, Point-of-Care* 1.2 mg/dl (0.6-1.3)
[2024-06-12 17:59] LABS: Chloride* 105 mmol/L (96-114); Sodium* 137 mmol/L (135-149)
[2024-06-12 18:00] LABS: Potassium* 4.3 mmol/L (3.6-5.1)
[2024-06-12 18:00] LABS: Appearance Urine Clear (Clear); Bilirubin Urine Negative (Negative); Blood Urine Trace-intact (Negative); Color Urine Yellow (Yellow); Glucose Urine Negative (Negative); Ketones Urine Negative (Negative); Leukocyte Esterase Urine Negative (Negative); Nitrite Urine Negative (Negative); Protein Urine Negative (Negative); Specific Gravity Urine 1.015 (1.000-1.030); Urobilinogen Urine 0.2 (0.2-1.0); pH Urine 5.5 (5.0-8.5)
[2024-06-12 18:02] LABS: Anion Gap 9 mEq/L (7-15); Blood Urea Nitrogen* 20 mg/dL (7-30); Carbon Dioxide* 23 mmol/L (20-32); Est. Creatinine Clearance* 35.26; Estimated Glomerular Filt Rate 56 ml/min
[2024-06-12 18:03] LABS: Calcium* 8.8 mg/dL (8.4-10.6); Glucose* 90 mg/dL (60-115)
[2024-06-12 18:05] LABS: RBC Urine 0-2 (0-2); Squamous Epithelial Cell Urine Few (None-Few); WBC Urine 0-2 (0-5)
--- OUTSIDE RECORDS SUMMARY | 2024-06-12 18:30 | XMS_ITS | Clinical Summary ---
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 [id number] 06/06/2024 Travel 05/30/2024 10:35 AM MENDING CARRIER Office Visit [facility] [address] [place] [address] Anel San Odalis, DO Medicare ANNUAL (subsequent) Visit (84 year old female); Neurologic Problem (Bilateral foot numbness - constant) 05/30/2024 Travel 05/19/2024 Telephone [facility] [address] [place] [id number] Anel San Odalis, DO Questions (Lab work wanted) 05/11/2024 Orders Only [facility] Scanner 1 scan: (1-Ord) [facility], 05/11/2024 04/20/2024 Refill [facility] [address] [place] [address] Anel San, DO Refill Request (Propranolol) from [...] on file Legal Sex Female 6:21 AM MENDING CARRIER Gender Identity Not on file Sexual Orientation Not on file Occupation Industry Job Start Date Job End Date Retired Not on file Not on file Not on file Obstetrics History Last Filed Vital Signs Vital Sign Reading Time Taken Comments Blood Pressure 130/86 05/30/2024 10:39 AM MENDING CARRIER Pulse 77 05/30/2024 10:39 AM MENDING CARRIER Temperature 36.4 C (97.6 F) 10/09/2022 9:21 AM CDT Respiratory Rate - - Oxygen Saturation 96% 05/30/2024 10:39 AM MENDING CARRIER Inhaled Oxygen Concentration - - Weight 86.5 kg (190 lb 9.6 oz) 05/30/2024 10:39 AM MENDING CARRIER Height 159.9 cm (5' 2.95) 05/30/2024 10:[address] Body Mass Index 33.81 05/30/2024 10:39 AM MENDING CARRIER Plan of Treatment Health Maintenance Due Date [...] 1 SITE PERIPHERAL Routine 06/06/2024 11:25 AM MENDING CARRIER Postmenopausal Asymptomatic postmenopausal state LIPID PANEL W REFLEX MEASURED LDL Routine 05/30/2024 11:14 AM MENDING CARRIER Lipid screening BASIC METABOLIC PANEL Routine 05/30/2024 11:14 AM MENDING CARRIER Stage 3a chronic kidney disease (HC) VITAMIN B12 Routine 05/30/2024 11:14 AM MENDING CARRIER Numbness of foot TSH WITH REFLEX Routine 05/30/2024 11:14 AM MENDING CARRIER Numbness of foot Pruritus CBC WITH AUTO DIFFERENTIAL Routine 05/30/2024 11:14 AM MENDING CARRIER Pruritus SCAN-OPERATIVE/PROCE DURE REPORT 05/11/2024 12:00 AM MENDING CARRIER from Last 3 Months Results * (ABNORMAL) XR DXA BONE DENSITY 2 SITES AXIAL AND 1 SITE PERIPHERAL (06/06/2024 11:25 AM MENDING CARRIER) Anatomical Region Laterality Modality LUMBAR SPINE Other Impressions 06/07/2024 1:12 PM MENDING CARRIER Osteopenia. RECOMMENDATIONS: The National Osteoporosis Foundation recommends [...] recommended in 3-5 years. Yanira Rand PA-C [facility] 06/07/2024 Narrative 06/07/2024 1:12 PM MENDING CARRIER For Patients: Results are automatically released to your [facility] ([facility]) account once available, in compliance with federal regulations. This means that you may see your results before your provider has had a chance to review them. Please allow 2-3 business days for your provider to comment on the results. XR DXA Bone Mineral Density (BMD) EXAM LOCATION: [address] [address] PATIENT NAME: Alivia Bhardwaj DATE OF : [...] two scanners are made by the same cable television line technician. PROCEDURE: Dual-energy x-ray absorptiometry performed with routine [...] * TSH WITH REFLEX (05/30/2024 11:14 AM MENDING CARRIER) TSH W/REFLEX TO FT4 2.04 0.40 - 4.50 mIU/L [facility] Blood BLOOD SPECIMEN / Unknown 05/30/2024 11:14 AM MENDING CARRIER 05/30/2024 11:14 AM MENDING CARRIER [facility] Odalis Mena CHEMISTRY Final Result [facility] [address] [place] [address], [facility] [address] [place] [address] * LIPID PANEL W REFLEX MEASURED LDL (05/30/2024 11:14 AM MENDING CARRIER) CHOLESTEROL, TOTAL 191 <200 mg/dL [facility] [...] LDL-C. Shekhar ROSEN et al. CECILIA. 2013;310(19): 1394-5286 (http://education.[employer]/faq/FXX505) CHOL/HDLC RATIO 2.2 <5.0 (calc) [facility] NON HDL CHOLESTEROL 104 <130 mg/dL (calc) [facility] Comment: For patients with diabetes plus 1 major ASCVD risk factor, treating to a non-HDL-C goal of <100 mg/dL (LDL-C of <70 mg/dL) is considered a therapeutic option. Blood BLOOD SPECIMEN / Unknown 05/30/2024 11:14 AM MENDING CARRIER 05/30/2024 11:14 AM MENDING CARRIER Anel Odalis San DO CHEMISTRY Final Result [facility] [address] [place] [address], [facility] [address] [place] [phone] * CBC AND DIFFERENTIAL (05/30/2024 11:14 AM MENDING CARRIER) Pathologist [facility] WHITE BLOOD CELL COUNT 7.1 3.8 - 10.8 Thousand/u L [facility] RED BLOOD CELL COUNT 4.40 3.80 - 5.10 Million/uL [facility] HEMOGLOBIN 13.2 11.7 - 15.5 g/dL [facility] HEMATOCRIT 39.4 35.0 - 45.0 % [facility] MCV 89.5 80.0 - 100.0 fL [facility] MCH 30.0 27.0 - 33.0 pg [facility] MCHC 33.5 32.0 - 36.0 g/dL [facility] Comment: For adults, a slight [...] BLOOD SPECIMEN / Unknown 05/30/2024 11:14 AM MENDING CARRIER 05/30/2024 11:14 AM MENDING CARRIER Luxim Mena DO HEMATOLOGY Final Result Performing Organization Address City/State/[facility] Co de Phone Number [facility] [address] [place] [address], [facility] [address] [place] [address] * VITAMIN B12 (05/30/2024 11:14 AM MENDING CARRIER) VITAMIN B12 752 200 - 1,100 pg/mL [facility] Blood BLOOD SPECIMEN / Unknown 05/30/2024 11:14 AM MENDING CARRIER 05/30/2024 11:14 AM MENDING CARRIER Anel Odalis [employer] DO CHEMISTRY Final Result [facility] [address] [place] [address], [place] [phone] [facility] [address] [place] [address] * (ABNORMAL) BASIC METABOLIC PANEL (05/30/2024 11:14 AM MENDING CARRIER) GLUCOSE 96 65 - 99 mg/dL [facility] Comment: Fasting reference interval UREA [...] BLOOD SPECIMEN / Unknown 05/30/2024 11:14 AM MENDING CARRIER 05/30/2024 11:14 AM MENDING CARRIER us Anel San DO CHEMISTRY Final Result [facility] [address] [place] [address], [place] [phone] [facility] [address] [place] [address] * SCAN-OPERATIVE/PROCEDURE REPORT (05/11/2024 12:00 AM MENDING CARRIER) us Scanner OTHER Final Result from Last 3 Months Insurance MEDICARE PART B HB ONLY [facility] MR/MSHO Care Teams Dry Cell Assembly Machine Tender Relationship Specialty Start Date End Date [place] [address] [address] PCP - General Family Practice 09/25/22
== END 2024-06-12 19:52 | disposition home or self-care (01) ==
PROVIDERS: Emergency Provider Emergency Medicine; PCP Family Medicine
DX: K57.92 Diverticulitis of intestine, part unspecified, without perforation or abscess without bleeding (principal)
CPT/HCPCS: 36415; 74177; 80048; 81001; 82565; 85025; 99284; 99285; Q9967